=== PATIENT | male | born 1995 | race Asian ===

== ENCOUNTER 2019-05-30 12:20 | Emergency (ER) | payer OTHER ==
[~2019-05-30] VITALS: Ht 175.3 cm; Wt 57.7 kg
[2019-05-30] MEDS ORDERED: MONT10TA21 PO (12:28)
[2019-05-30] MEDS ORDERED: HYDR30CR3 TP (12:28)
[2019-05-30] MEDS ORDERED: IBUPROFEN 800 MG TABLET PO ONE (15:15)
[2019-05-30 16:18] VITALS: BP 135/71
== END 2019-05-30 16:19 | disposition home or self-care (01) ==
LOC: EMS 12:21
DX: K64.4 Residual hemorrhoidal skin tags (principal)

== ENCOUNTER 2019-07-24 22:02 | Emergency (ER) | payer OTHER ==
[~2019-07-24] VITALS: Ht 175.3 cm; Wt 59.1 kg
[~2019-07-24 22:02] MED LIST: HYDR30CR3 TP; MONT10TA21 PO
[2019-07-24 22:28] VITALS: BP 130/80
== END 2019-07-25 00:50 | disposition home or self-care (01) ==
LOC: EMS 22:03
DX: S09.90XA Unspecified injury of head, initial encounter (principal); J45.909 Unspecified asthma, uncomplicated; F12.90 Cannabis use, unspecified, uncomplicated; W22.8XXA Striking against or struck by other objects, initial encounter; Y93.89 Activity, other specified; Y92.69 Other specified industrial and construction area as the place of occurrence of the external cause; Y99.8 Other external cause status
CPT/HCPCS: 72125